=== PATIENT | female | born 1955 | race Caucasian/White ===

== ENCOUNTER 2017-08-13 11:02 | Emergency (ER) | payer MEDICAID ==
[~2017-08-13] VITALS: Ht 162.6 cm; Wt 71.5 kg
[2017-08-13 11:05] VITALS: Ht 162.6 cm; Wt 71.5 kg
[2017-08-13 12:18] LABS: BASOPHILS % 0.5 % (0.0-2.0); EOSINOPHILS # 0.1 10^3/ul (0.0-0.5); EOSINOPHILS % 0.7 % (0.0-7.0); HEMATOCRIT 43.5 % (37.0-47.0); HEMOGLOBIN 14.5 g/dl (12.0-16.0); LYMPHOCYTES # 2.6 10^3/ul (0.8-2.9); LYMPHOCYTES % 29.5 % (15.0-51.0); MEAN CORPUSCULAR HEMOGLOBIN 29.1 pg (29.0-33.0); MEAN CORPUSCULAR HGB CONC 33.3 g/dl (32.0-37.0); MEAN CORPUSCULAR VOLUME 87.2 fl (82.0-101.0); MEAN PLATELET VOLUME 9.7 fl (7.4-10.4); MONOCYTE # 0.5 10^3/ul (0.3-0.9); MONOCYTES % 5.6 % (0.0-11.0); NEUTROPHIL # 5.5 10^3/ul (1.6-7.5); NEUTROPHILS % 63.1 % (39.0-77.0); PLATELET COUNT 342 10^3/UL (140-415); RED BLOOD COUNT 4.99 10^6/ul (4.20-5.40); WHITE BLOOD COUNT 8.7 10^3/ul (4.8-10.8)
--- NOTE | 2017-08-13 12:19 | ERD ---
ER Documentation Chief Complaint Date/Time DATE: 08/13/17 TIME: 12:16 Chief Complaint RIGHT GROIN PAIN , RADIAITING TO RIGHT BACK SINCE LAST NIGHT HPI Patient is a 62-year-old female who presents to the ED with right-sided abdominal pain and pelvic pain. She states that it came on suddenly last night while she was cooking dinner and felt the pain in her right pelvic and radiated to her low back. She says that she was unable to stand up straight. She denies nausea, vomiting, diarrhea or constipation. Her last bowel movement was this morning. She did have a bowel movement yesterday. She denies abnormal vaginal bleeding. She has been in menopause for about 15 years. Patient was seen at her primary care provider, [facility] who sent her to the ER for ultrasound and possible CT scan. Patient states that the pain is better today however she still does have the pain. She is able to ambulate. She denies fever or chills. She states that she does have an appetite. No other complaints. ROS All systems reviewed and are negative except as per history of present illness. Medications Home Meds Active Scripts Acetaminophen* (Tylophen*) 500 Mg Capsule, 1 CAP PO Q6H Y for PAIN AND OR ELEVATED TEMP, #20 CAP Prov:RUKHSANA US PA-C 08/13/17 Allergies Allergies: Coded Allergies: No Known Allergy (Unverified , 08/13/17) PMhx/Soc History of Surgery: No Anesthesia Reaction: No Hx Neurological Disorder: No Hx Respiratory Disorders: No Hx Cardiac Disorders: No Hx Psychiatric Problems: No Hx Miscellaneous Medical Probl: Yes (DM) Hx Alcohol Use: No Hx Substance Use: No Hx Tobacco Use: No Smoking Status: Former smoker FmHx Family History: No coronary disease, No diabetes, No other Physical Exam Vitals Vital Signs Date Time Temp Pulse Resp B/P Pulse Ox O2 Delivery O2 Flow Rate FiO2 08/13/17 11:05 98.0 75 18 125/68 98 Physical Exam GENERAL: Well-developed, well-nourished female. Appears in no acute distress. HEAD: Normocephalic, atraumatic. LUNG: Clear to auscultation bilaterally. No rhonchi, wheezing, rales or coarse breath sounds. HEART: Regular rate and rhythm. No murmurs, rubs or gallops. ABDOMEN: No scars, ecchymosis or rashes noted. Soft, tenderness in the right pelvic and right lower quadrant. And nondistended. Positive bowel sounds in all four quadrants. No rebound tenderness, no guarding. (-) McBurneys point tenderness. No CVA tenderness. BACK: No midline tenderness. Extremities: Equal pulses bilaterally. No peripheral clubbing, cyanosis or edema. No unilateral leg swelling. NEUROLOGIC: Alert and oriented. Moving all four extremities. 5/5 strength in all extremities. Normal speech. Steady gait. SKIN: Normal color. Warm and dry. No rashes or lesions. Capillary refill < 2 seconds Result Diagram: 08/13/17 1202 08/13/17 1202 Results 24 hrs Laboratory Tests Test 08/13/17 12:02 08/13/17 12:05 White Blood Count 8.710^3/ul Red Blood Count 4.9910^6/ul Hemoglobin 14.5g/dl Hematocrit 43.5% Mean Corpuscular Volume 87.2fl Mean Corpuscular Hemoglobin 29.1pg Mean Corpuscular Hemoglobin Concent 33.3g/dl Red Cell Distribution Width 13.0% Platelet Count 10953^3/UL Mean Platelet Volume 9.7fl Neutrophils % 63.1% Lymphocytes % 29.5% Monocytes % 5.6% Eosinophils % 0.7% Basophils % 0.5% Nucleated Red Blood Cells % 0.0/100WBC Neutrophils # 5.510^3/ul Lymphocytes # 2.610^3/ul Monocytes # 0.510^3/ul Eosinophils # 0.110^3/ul Basophils # 0.010^3/ul Nucleated Red Blood Cells # 0.010^3/ul Sodium Level 141mmol/L Potassium Level 4.1mmol/L Chloride Level 106mmol/L Carbon Dioxide Level 26mmol/L Anion Gap 13 Blood Urea Nitrogen 11mg/dl Creatinine 0.73mg/dl Glucose Level 127mg/dl Calcium Level 9.6mg/dl Total Bilirubin 0.2mg/dl Direct Bilirubin 0.00mg/dl Indirect Bilirubin 0.2mg/dl Aspartate Amino Transf (AST/SGOT) 26IU/L Alanine Aminotransferase (ALT/SGPT) 33IU/L Alkaline Phosphatase 100IU/L Total Protein 8.0g/dl Albumin 4.5g/dl Globulin 3.50g/dl Albumin/Globulin Ratio 1.28 Lipase 97U/L Urine Color COLORLESS Urine Clarity CLEAR Urine pH 6.0 Urine Specific Sparks 1.003 Urine Ketones NEGATIVEmg/dL Urine Nitrite NEGATIVEmg/dL Urine Bilirubin NEGATIVEmg/dL Urine Urobilinogen NEGATIVEmg/dL Urine Leukocyte Esterase NEGATIVELeu/ul Urine Hemoglobin NEGATIVEmg/dL Urine Glucose NEGATIVEmg/dL Urine Total Protein NEGATIVEmg/dl Procedures/MDM ER COURSE: I kept the patient and/or family informed of laboratory and diagnostic imaging results throughout the emergency room course. LAB INTERPRETATION: CBC showed no evidence of systemic infection or severe anemia. CMP showed no evidence of electrolyte abnormalities, severe acidosis, alkalosis, renal failure , or liver disease. Lipase showed no evidence of acute pancreatitis. UA showed no evidence of leukocytes, nitrites or hematuria. MEDICAL DECISION MAKING: This is a 62 year old female who presents with abdominal pain and pelvic pain x 1 day. Vital signs were reviewed. Patient is afebrile. Patient is not hypoxic. Ultrasound within normal limits. CT abdomen pelvis within normal limits. Labs within normal limits and imaging studies within normal limits. Patient has abdominal pain of unknown etiology. Low suspicion for ACS, AAA, perforated ulcer, bowel obstruction, cholecystitis, choledocholithiasis, cholangitis, pancreatitis, hepatic abscess, appendicitis, diverticulitis, gastroenteritis, hepatitis, peptic ulcer disease, HELLP syndrome. DISCHARGE: At this time, patient is stable for discharge and outpatient management with no new complaints during the ER course. Patient was sent home with copy of all imaging and laboratory studies and to follow-up with her primary care provider for further evaluation. Prescription for Tylenol given. Patient will be discharged home with instructions to recheck for new or worsening symptoms such as fever, nausea, weakness, LOC and to follow up with primary care in the next 1 -2 days. Patient was advised to return to the ER for any new or worsening symptoms. Plan was discussed and patient and/or family understands and agrees. Home instructions were given. Departure Diagnosis: Primary Impression: Abdominal pain Abdominal location: right lower quadrant Qualified Code: R10.31 - Right lower quadrant abdominal pain Condition: Stable RUKHSANA US PA-C Aug 13, 2017 12:19
[2017-08-13 12:21] LABS: ADD UMIC NO; UR ASCORBIC ACID NEGATIVE (NEGATIVE); UR BILIRUBIN (Dip) NEGATIVE (NEGATIVE); UR BLOOD (Dip) NEGATIVE (NEGATIVE); UR CLARITY CLEAR (CLEAR); UR COLOR COLORLESS (YELLOW); UR GLUCOSE (Dip) NEGATIVE (NEGATIVE); UR KETONES (Dip) NEGATIVE (NEGATIVE); UR LEUKOCYTE ESTERASE (Dip) NEGATIVE Leu/ul (NEGATIVE); UR NITRITE (Dip) NEGATIVE (NEGATIVE); UR SPECIFIC GRAVITY (Dip) 1.003 (1.003-1.030); UR TOTAL PROTEIN (Dip) NEGATIVE (NEGATIVE); UR UROBILINOGEN (Dip) NEGATIVE (NEGATIVE)
[2017-08-13 12:40] LABS: ALBUMIN 4.5 g/dl (3.3-4.9); ALBUMIN/GLOBULIN RATIO 1.28; BILIRUBIN,INDIRECT 0.2 mg/dl (0-1.1); BILIRUBIN,TOTAL 0.2 mg/dl (0.2-1.3); CALCIUM 9.6 mg/dl (8.4-10.2); CREATININE 0.73 mg/dl (0.44-1.00); POTASSIUM 4.1 mmol/L (3.5-5.1)
--- NOTE | 2017-08-13 13:32 | RADRPT ---
PROCEDURE: CT KUB. CLINICAL INDICATION: rlq abdominal pain radiates to back TECHNIQUE: CT KUB (Renal Stone Survey) without contrast was performed on a GE volumetric [address] scanner. No IV contrast was administered. 3-D coronal reformatted images were obtained from the axial source images. CTDI: 9.1 mGy DLP: 475 mGy-cm One or more of the following dose reduction techniques were used: Automated exposure control. Adjustment of the mA and/or kV according to patient size. Use of iterative reconstruction technique. COMPARISON: No prior studies are available for comparison. FINDINGS: Limited evaluation of the lung bases are clear. The unenhanced liver demonstrates no focal liver lesions. The liver is enlarged. The unenhanced spleen, bilateral adrenal glands, gallbladder, and pancreas are normal-appearing. No biliary dilatation. Aside from a tiny punctate right renal mid pole calculus measuring 2 mm, the bilateral kidneys are n ormal-appearing without hydronephrosis nor gross renal mass. The small and large bowel are thin-walled and nondilated without evidence for obstruction. The appen rocio is normal. The uterus is grossly unremarkable. Urinary bladder is unremarkable. No free air, free fluid, mesenteric stranding, nor abdominal pelvic adenopathy. The abdominal aorta is normal in caliber with mild scattered atherosclerotic calcifications. Mild degenerative changes at the L5-S1 junction without suspicious osseous lesion or fracture. Mild generalized osteopenia. IMPRESSION: No acute intra-abdominal process. Normal appendix. No intra-abdominal inflammatory process. Punctate right renal mid pole 2 mm calculus without obstruction. Physician Chung Date Time Electronically viewed and signed by Physician Chung on 08/13/2017 13:32 ML/
--- NOTE | 2017-08-13 14:22 | RADRPT ---
PROCEDURE: US Pelvis. CLINICAL INDICATION: pelvic pain TECHNIQUE: Multiple sonographic images of the pelvis were obtained utilizing a transabdominal shelley hnique. The images were reviewed on a PACS workstation. COMPARISON: None. FINDINGS: The uterus was not visualized. The ovaries were not visualized. There is no evidence for free fluid. RPTAT: AA IMPRESSION: Limited transabdominal ultrasound performed. Uterus and ovaries not visualized. No free fluid. .Arsh Mello MD, Date Time Electronically viewed and signed by .Arsh Mello MD, on 08/13/2017 14:22 .M/
[2017-08-13] MEDS ORDERED: ACET500C5 PO (15:18)
== END 2017-08-13 15:55 | disposition home or self-care (01) ==
LOC: FTE 11:02
DX: R10.31 Right lower quadrant pain (principal); E11.9 Type 2 diabetes mellitus without complications; Z87.891 Personal history of nicotine dependence
CPT/HCPCS: 36415; 74176; 76856; 80053; 81003; 83690; 85025; Z7502